=== PATIENT | female | born 1995 ===

== ENCOUNTER 2017-05-20 20:39 | Emergency (ER) | payer MEDICAID ==
[2017-05-20 20:53] VITALS: RESP 18
[2017-05-20 21:29] LABS: HCG,QUALITATIVE URINE POSITIVE (NEGATIVE)
[2017-05-20] MEDS ORDERED: Sodium Chloride 0.9% 1,000 ML IV ONE (21:32)
--- NOTE | 2017-05-20 21:32 | C.PDOC ---
History Of Present Illness The patient presents to the ED for evaluation of abdominal pain which began earlier today. Patient reports a burning sensation in her stomach as well as nausea and decreased PO intake. Patient is . She denies fever, chills, and vomiting at this time. Time Seen by Provider: 05/20/17 21:32 Chief Complaint (Nursing): Chest Pain History Per: Patient History/Exam Limitations: no limitations Onset/Duration Of Symptoms: Hrs Current Symptoms Are (Timing): Still Present Severity: Mild Pain Scale Rating Of: 2 Quality: Burning, "Pain" Associated Symptoms: Nausea Modifying Factors: None Exacerbating Factors: None Alleviating Factors: None Recent travel outside of the [place]: No Additional History Per: Patient Past Medical History Reviewed: Historical Data, Nursing Documentation, Vital Signs Vital Signs: Last Vital Signs Temp 98.0 F 05/20/17 20:50 Pulse 100 H 05/20/17 20:50 Resp 18 05/20/17 20:50 BP 131/82 05/20/17 20:50 Pulse Ox 100 05/20/17 22:19 - Medical History PMH: No Chronic Diseases Surgical History: No Surg Hx - [facility] Procedures APPLICATION OF SPLINT (04/11/14) Family History: States: No Known Family Hx - Social History Hx Tobacco Use: No Hx Alcohol Use: No Hx Substance Use: No - Immunization History Hx Influenza Vaccination: No Hx Pneumococcal Vaccination: No Review Of Systems Constitutional: Negative for: Fever, Chills Cardiovascular: Negative for: Chest Pain, Palpitations Respiratory: Negative for: Cough, Shortness of Breath Gastrointestinal: Positive for: Nausea, Abdominal Pain. Negative for: Vomiting , Diarrhea, Constipation Genitourinary: Negative for: Dysuria, Frequency, Hematuria Skin: Negative for: Rash, Lesions, Jaundice, Bruising Neurological: Negative for: Weakness, Numbness Physical Exam - Physical Exam Appears: Non-toxic, No Acute Distress Skin: Warm, Dry Head: Normacephalic Eye(s): bilateral: Normal Inspection Oral Mucosa: Moist Neck: Supple Chest: Symmetrical, No Deformity, No Tenderness Cardiovascular: Rhythm Regular, No Murmur Respiratory: No Rales, No Rhonchi, No Wheezing Gastrointestinal/Abdominal: Soft, No Tenderness, No Guarding, No Rebound Extremity: Normal ROM, Capillary Refill (less than 2 seconds ) Extremity: Bilateral: Atraumatic Neurological/Psych: Oriented x3 Gait: Steady ED Course And Treatment - Laboratory Results Result Diagrams: 05/20/17 21:45 05/20/17 21:45 ECG: Interpreted By Me, Viewed By Me ECG Rhythm: Sinus Rhythm (90), Nonspecific Changes O2 Sat by Pulse Oximetry: 100 (on RA) Pulse Ox Interpretation: Normal Progress Note: Bloodwork, urinalysis, EKG and Pelvic/Transvaginal US ordered. IV Fluids administered. 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 I have reviewed the chart and agree that the record accurately reflects my personal performance of the history, physical exam, medical decision making, and the department course for this patient. I have also personally directed, reviewed, and agree with the discharge instructions and disposition.
[2017-05-20 21:34] LABS: SQUAMOUS EPITHIAL 5 /hpf (0-5); URINE BACTERIA OCC (<OCC); URINE BILIRUBIN NEGATIVE (NEGATIVE); URINE BLOOD NEGATIVE (NEGATIVE); URINE CLARITY Hazy (Clear); URINE COLOR Yellow (YELLOW); URINE GLUCOSE (UA) NORMAL (Normal); URINE LEUKOCYTE ESTERASE NEG Leu/uL (Negative); URINE PROTEIN NEGATIVE (NEGATIVE); URINE UROBILINOGEN NORMAL mg/dL (0.2-1.0)
[2017-05-20 21:48] LABS: BASO % 0.2 % (0.0-2.0); EOS # 0.1 K/uL (0.0-0.7); EOS % 0.4 % (0.0-4.0); HEMOGLOBIN 12.3 g/dL (11.0-16.0); LYMPH # 1.7 K/uL (1.0-4.3); LYMPH % 10.1 % (20.0-40.0); MEAN CORPUSCULAR HEMOGLOBIN 29.8 pg (27.0-31.0); MEAN PLATELET VOLUME 8.3 fL (7.2-11.7); NEUT # 14.1 K/uL (1.8-7.0); NEUT % 83.3 % (50.0-75.0); RBC 4.12 Mil/uL (3.80-5.20); RED CELL DISTRIBUTION WIDTH 13.6 % (11.5-14.5)
[2017-05-20 21:49] LABS: MEAN CELL VOLUME 90.1 fL (81.0-99.0)
[2017-05-20] MEDS ORDERED: Sodium Chloride 0.9% 1,000 ML ONE (21:52)
[2017-05-20 21:59] LABS: INR 1.1; PROTHROMBIN TIME 11.9 SECONDS (9.7-12.2)
[2017-05-20 22:01] LABS: ALB/GLOB RATIO 0.9 (1.0-2.1); ALT/SGPT 19 U/L (9-52); AST/SGOT 15 U/L (14-36); BLOOD UREA NITROGEN 6 mg/dL (7-17); GFR AFRICAN-AMERICAN > 60; GFR NON-AFRICAN AMERICAN > 60
--- NOTE | 2017-05-20 23:46 | US ---
EXAM: US First Trimester, Transabdominal CLINICAL HISTORY: 22 years old, female; Signs and symptoms; Lmp or gestational age (in weeks): 1-11-18; Other: Abd pain; ; Additional info: Abd pain 9 weeks preg TECHNIQUE: Real-time transabdominal obstetrical ultrasound of the maternal pelvis and a first trimester with image documentation. COMPARISON: No relevant prior studies available. FINDINGS: Gestation: Single live intrauterine gestation. heart rate of 167 beats per minute. Muse-rump length of 1.6 cm, correlating with gestational age of 8 weeks 0 days. Uterus/cervix: No subchorionic hemorrhage. No cervical dilatation or effacement. Ovaries: RIGHT ovary: Probable 1.8 x 1.7 x 2.0 cm corpus luteal cyst. LEFT ovary: Normal. No adnexal masses. Free fluid: No significant free fluid. IMPRESSION: 1. Single live intrauterine gestation. 2. Incidental/non-acute findings are described above. EXAM: US , Transvaginal CLINICAL HISTORY: 22 years old, female; Signs and symptoms; Lmp or gestational age (in weeks): 1-11-18; Other: Abd pain; ; Additional info: Abd pain 9 weeks preg TECHNIQUE: Real-time transvaginal obstetrical ultrasound of the maternal pelvis and a first trimester with image documentation. Transvaginal imaging was used for better evaluation of the fetus and adnexa. COMPARISON: No relevant prior studies available. FINDINGS: Gestation: Single live intrauterine gestation. heart rate of 167 beats per minute. Muse-rump length of 1.6 cm, correlating with gestational age of 8 weeks 0 days. Uterus/cervix: No subchorionic hemorrhage. No cervical dilatation or effacement. Ovaries: RIGHT ovary: Probable 1.8 x 1.7 x 2.0 cm corpus luteal cyst. LEFT ovary: Normal. No adnexal masses. Free fluid: No significant free fluid.
[2017-05-21 00:04] VITALS: BP 120/77; PULSE 88; TEMP 98.4; O2SAT 99
--- NOTE | 2017-05-21 16:19 | CARD ---
APPROVED REPORT EKG Measurement Heart [id number] <Conclusion> Normal sinus rhythm Normal ECG
== END 2017-05-21 00:06 | disposition home or self-care (01) ==
LOC: C.ER 20:39
DX: O26.891 Other specified pregnancy related conditions, first trimester (principal); R10.9 Unspecified abdominal pain; Z3A.09 9 weeks gestation of pregnancy
CPT/HCPCS: 76805; 76817; 80053; 81001; 84702; 84703; 85025; 85610; 85730; 86850; 86900; 93005; 96360; 99284; J7040

== ENCOUNTER 2017-05-23 15:13 | Emergency (ER) | payer MEDICAID ==
[2017-05-23 15:20] VITALS: O2SAT 100
[2017-05-23] MEDS ORDERED: Amoxicillin-Clav 875-125 mg Tab PO STA (15:54)
[2017-05-23] MEDS ORDERED: Amoxicillin-Clav 875-125 mg Tab PO ONE ×2 (16:03→16:07)
--- NOTE | 2017-05-23 16:29 | C.PDOC ---
Time Seen by Provider: 05/23/17 15:48 Chief Complaint (Nursing): ENT Problem History Per: Patient Onset/Duration Of Symptoms: Days (2) Current Symptoms Are (Timing): Still Present Location Of Pain: Throat Associated Symptoms: Sore Throat Severity: Moderate Additional History Per: Prior Records Past Medical History Reviewed: Historical Data, Nursing Documentation, Vital Signs Vital Signs: Last Vital Signs Temp 99 F 05/23/17 15:18 Pulse 87 05/23/17 15:18 Resp 20 05/23/17 15:18 BP 133/86 05/23/17 15:18 Pulse Ox 100 05/23/17 15:18 - Medical History PMH: No Chronic Diseases Other PMH: Pt is 9 weeks Surgical History: No Surg Hx - [facility] Procedures APPLICATION OF SPLINT (04/11/14) Family History: States: Unknown Family Hx - Social History Hx Tobacco Use: No Hx Alcohol Use: No Hx Substance Use: No - Immunization History Hx Influenza Vaccination: No Hx Pneumococcal Vaccination: No Review Of Systems Except As Marked, All Systems Reviewed And Found Negative. Constitutional: Positive for: Fever (?). Negative for: Weakness ENT: Positive for: Throat Pain, Throat Swelling. Negative for: Nose Congestion Cardiovascular: Negative for: Chest Pain Respiratory: Negative for: Cough, Shortness of Breath Gastrointestinal: Negative for: Vomiting, Abdominal Pain Genitourinary: Negative for: Dysuria, Vaginal Bleeding, Pelvic Pain Musculoskeletal: Negative for: Neck Pain, Back Pain Skin: Negative for: Rash Neurological: Negative for: Weakness, Numbness Physical Exam - Physical Exam Appears: Non-toxic, No Acute Distress Skin: Normal Color, Warm, Dry, No Rash Head: Atraumatic, Normacephalic Eye(s): bilateral: Normal Inspection, PERRL, EOMI Oral Mucosa: Moist Throat: Erythema, Exudate, No Mass Neck: Normal ROM, Supple Lymphatic: Adenopathy (Cervical) Cardiovascular: Rhythm Regular Respiratory: Normal Breath Sounds, No Accessory Muscle Use Gastrointestinal/Abdominal: Soft, No Tenderness Back: No CVA Tenderness Extremity: Normal ROM Neurological/Psych: Oriented x3, Normal Motor, Normal Sensation ED Course And Treatment O2 Sat by Pulse Oximetry: 100 Pulse Ox Interpretation: Normal Reassessment Condition: Improved Disposition Counseled Patient/Family Regarding: Diagnosis, Need For Followup, Rx Given - Disposition Referrals: Edmund Ha MD [Staff Provider] - Disposition: HOME/ ROUTINE Disposition Time: 16:30 Condition: IMPROVED Additional Instructions: Follow up with your doctor. Return to the ER if you develop high fever, trouble breathing or swallowing, worsening of symptoms or if you have any other concerns. Prescriptions: Amoxicillin/Clavulanate [Augmentin 875 MG-125 MG] 1 tab PO BID #20 tab Instructions: Sore Throat, Adult (DC) Forms: [employer] (Vietnamese) - Clinical Impression Clinical Impression: Acute bacterial tonsillitis
[2017-05-23 16:44] VITALS: BP 114/74; PULSE 88; RESP 18; TEMP 98.7
== END 2017-05-23 16:44 | disposition home or self-care (01) ==
LOC: C.ER 15:13
DX: J03.90 Acute tonsillitis, unspecified (principal)

== ENCOUNTER 2017-07-13 19:51 | Emergency (ER) | payer MEDICAID, OTHER ==
[2017-07-13 20:16] VITALS: BP 132/81; PULSE 105; TEMP 98.3; O2SAT 98
[2017-07-13 20:45] LABS: SQUAMOUS EPITHIAL 12 /hpf (0-5); URINE BACTERIA FEW (<OCC); URINE BILIRUBIN NEGATIVE (NEGATIVE); URINE BLOOD NEGATIVE (NEGATIVE); URINE CLARITY Hazy (Clear); URINE COLOR Yellow (YELLOW); URINE GLUCOSE (UA) NORMAL (Normal); URINE PROTEIN NEGATIVE (NEGATIVE); URINE UROBILINOGEN NORMAL mg/dL (0.2-1.0)
[2017-07-13 20:46] LABS: URINE LEUKOCYTE ESTERASE 2+ Leu/uL (Negative)
[2017-07-13 21:46] VITALS: RESP 20
--- NOTE | 2017-07-13 21:48 | C.PDOC ---
History Of Present Illness 22 y/o female 4 months presents to the ED for palpitations. Patient admits to being an avid coffee and caffeine beverage drinker. She denies any CP , SOB, calf tenderness, and syncope. PMD: Dr. Palacios Chief Complaint (Nursing): Palpitations History Per: Patient History/Exam Limitations: no limitations Onset/Duration Of Symptoms: Hrs Current Symptoms Are (Timing): Still Present Recent travel outside of the [place]: No Past Medical History Reviewed: Historical Data, Nursing Documentation, Vital Signs Vital Signs: Last Vital Signs Temp 98.3 F 07/13/17 20:12 Pulse 105 H 07/13/17 20:12 Resp 20 07/13/17 21:45 BP 132/81 07/13/17 20:12 Pulse Ox 98 07/13/17 22:26 - Medical History PMH: No Chronic Diseases Surgical History: No Surg Hx - [facility] Procedures APPLICATION OF SPLINT (04/11/14) Family History: States: Unknown Family Hx - Social History Hx Tobacco Use: No Hx Alcohol Use: No Hx Substance Use: No - Immunization History Hx Influenza Vaccination: No Hx Pneumococcal Vaccination: No Review Of Systems Except As Marked, All Systems Reviewed And Found Negative. Cardiovascular: Positive for: Palpitations. Negative for: Chest Pain Respiratory: Negative for: Shortness of Breath Musculoskeletal: Negative for: Other (calf tenderness) Neurological: Negative for: Other (syncope) Physical Exam - Physical Exam Appears: Well, No Acute Distress Skin: Normal Color, Warm, Dry Head: Normacephalic Eye(s): bilateral: Normal Inspection, PERRL, EOMI Nose: Normal Throat: Normal Neck: Normal Cardiovascular: Rhythm Regular, No Edema, Other (Heat S1 & S2 is normal, no systoles) Respiratory: Normal Breath Sounds, Other (clear to auscultation bilaterally) Gastrointestinal/Abdominal: Normal Exam, Soft, No Tenderness Back: Normal Inspection Pelvic: Other (gravid uterus gestation of 15 weeks) Extremity: Normal ROM, No Pedal Edema, No Calf Tenderness, No Swelling, No Other (no clubbing edema) Extremity: Bilateral: No Pedal Edema Pulses: Left Radial: Normal (2+ distole), Right Radial: Normal (2+ distole) Neurological/Psych: Oriented x3, Normal Motor, No Other (focal deficits) ED Course And Treatment ECG: Interpreted By Me, Viewed By Me ECG Rhythm: Sinus Rhythm (normal), ST/T Changes (none and negative for ectopy) Rate From EC O2 Sat by Pulse Oximetry: 98 (RA) Pulse Ox Interpretation: Normal Medical Decision Making Medical Decision Making: Time: 20:12 Impression: Palpitations likely related to caffeine consumption Initial Plan: * EKG Will advise patient to avoid caffeinated drinks and to follow up with PMD as needed. Scribe Attestation: Documented by Josue Pradhan acting as a scribe Theron Mccormick MD. Scribe Attestation: All medical record entries made by the Scribe were at my direction and personally dictated by me. I have reviewed the chart and agree that the record accurately reflects my personal performance of the history, physical exam, medical decision making, and the department course for this patient. I have also personally directed, reviewed, and agree with the discharge instructions and disposition. Disposition - Disposition Referrals: [facility] [Outside] Disposition: HOME/ ROUTINE Disposition Time: 08:47 Condition: GOOD Additional Instructions: avoid caffienated beverages Instructions: Palpitations Forms: [employer] (Danish) Print Language: ALGERIAN - Clinical Impression Clinical Impression: Palpitations
--- NOTE | 2017-07-14 12:17 | CARD ---
APPROVED REPORT EKG Measurement Heart [id number] <Conclusion> Normal sinus rhythm Normal ECG
== END 2017-07-13 21:45 | disposition home or self-care (01) ==
LOC: C.ER 19:51
DX: R00.2 Palpitations (principal); O26.891 Other specified pregnancy related conditions, first trimester; Z3A.16 16 weeks gestation of pregnancy

== ENCOUNTER 2018-07-13 20:34 | Emergency (ER) | payer OTHER ==
[2018-07-13 21:40] LABS: SQUAMOUS EPITHIAL 1 /hpf (0-5); URINE BILIRUBIN NEGATIVE (NEGATIVE); URINE BLOOD NEGATIVE (NEGATIVE); URINE CLARITY Clear (Clear); URINE COLOR Yellow (YELLOW); URINE GLUCOSE (UA) NORMAL (Normal); URINE LEUKOCYTE ESTERASE NEG Leu/uL (Negative); URINE PROTEIN NEGATIVE (NEGATIVE); URINE UROBILINOGEN NORMAL mg/dL (0.2-1.0)
[2018-07-13 21:42] LABS: HCG,QUALITATIVE URINE NEGATIVE (NEGATIVE)
--- NOTE | 2018-07-13 21:48 | C.PDOC ---
History Of Present Illness 23 year old female presents to the ED c/o right sided headache that worsens with positional change. Patient also c/o nasal congestion. Patient denies feverm chills, visual changes, neck pain, rash, weakness, numbness. Time Seen by Provider: 07/13/18 21:39 Chief Complaint (Nursing): Headache History Per: Patient History/Exam Limitations: None Onset/Duration Of Symptoms: Days Current Symptoms Are (Timing): Still Present Anticoagulant/Antiplatlet Use?: No Recent Aspirin Use: No Past Medical History Reviewed: Historical Data, Nursing Documentation, Vital Signs Vital Signs: Last Vital Signs Temp 99.1 F 07/13/18 20:53 Pulse 90 07/13/18 20:53 Resp 20 07/13/18 20:53 BP 133/85 07/13/18 20:53 Pulse Ox 100 07/13/18 20:53 Primary Care Provider: Non [facility] Provider, - Medical History PMH: No Chronic Diseases Surgical History: No Surg Hx - [facility] Procedures APPLICATION OF SPLINT (04/11/14) Family History: States: Unknown Family Hx - Social History Hx Tobacco Use: No Hx Alcohol Use: No Hx Substance Use: No - Immunization History Hx Influenza Vaccination: No Hx Pneumococcal Vaccination: No Review Of Systems Constitutional: Negative for: Fever, Chills Eyes: Negative for: Vision Change Cardiovascular: Negative for: Chest Pain, Palpitations Respiratory: Negative for: Shortness of Breath Gastrointestinal: Negative for: Nausea, Vomiting, Abdominal Pain Skin: Negative for: Rash Neurological: Positive for: Headache. Negative for: Weakness, Numbness, Dizziness Physical Exam - Physical Exam Appears: Non-toxic, No Acute Distress, Other (obese female) Skin: Normal Color, Warm, Dry Head: Atraumatic, Normacephalic Eye(s): bilateral: Normal Inspection, PERRL, EOMI Ear(s): Bilateral: Normal Nose: Other (nasal inflamation r> l, kissing turbinates) Oral Mucosa: Moist Neck: Normal ROM, Supple Chest: Symmetrical Cardiovascular: Rhythm Regular Respiratory: Normal Breath Sounds, No Rales, No Rhonchi, No Wheezing Gastrointestinal/Abdominal: Soft, No Tenderness, No Guarding, No Rebound Extremity: Normal ROM, No Tenderness, No Swelling Neurological/Psych: Oriented x3, Normal Speech, Normal Cognition Gait: Steady ED Course And Treatment - Laboratory Results Lab Results: Urine HCG, Qual Negative (NEGATIVE) 07/13/18 21:32 Urine HCG, Qual Negative (NEGATIVE) 07/13/18 21:32 Lab Interpretation: Normal (ua neg) Urine POC: Negative O2 Sat by Pulse Oximetry: 100 (ON RA) Pulse Ox Interpretation: Normal Medical Decision Making Medical Decision Making: R sinus headache Disposition Doctor Will See Patient In The: Office Counseled Patient/Family Regarding: Studies Performed, Diagnosis - Disposition Referrals: [facility] [Outside] [employer] [facility] [Outside] [facility] [Outside] [place] [facility] [Outside] Disposition: HOME/ ROUTINE Disposition Time: 21:47 Condition: GOOD Additional Instructions: Advil/Ibuprofeno 600 mg cada 6 horas peewee necessario Pseudafed 30 mg cada 6 horas peewee necessario Se seca las pasajes nasales Claritin 10 mg diario- baja inflammaci'n de las pasajes nasalde sdebido a las allergies e la temporada Flonase [place]- esteroidal 1 espray cada lado del nariz cada 12 horas has el [place] Sigue con la clinica Familar peewee necessario. Instructions: Sinus Headache (DC) Forms: [employer] (French) Print Language: ARABIC - Clinical Impression Clinical Impression: Headache - Scribe Statement The provider has reviewed the documentation as recorded by the Scribe Yaya Noriega All medical record entries made by the Scribe were at my direction and personally dictated by me. I have reviewed the chart and agree that the record accurately reflects my personal performance of the history, physical exam, medical decision making, and the department course for this patient. I have also personally directed, reviewed, and agree with the discharge instructions and disposition.
[2018-07-13 21:58] VITALS: BP 134/73; PULSE 79; RESP 18; TEMP 98.6
[2018-07-14 04:05] VITALS: O2SAT 100
== END 2018-07-13 21:58 | disposition home or self-care (01) ==
LOC: C.ER 20:34
DX: R51 Headache (principal)

== ENCOUNTER 2018-08-01 07:27 | Emergency (ER) | payer OTHER ==
[2018-08-01] MEDS ORDERED: Oxycodone/Acetaminophen 5/325 mg Tab PO STA (08:09)
--- NOTE | 2018-08-01 08:13 | C.PDOC ---
History Of Present Illness 23 year old female presents to the emergency department with complaints of right-sided dental pain which is radiating to her right ear and neck. Patient denies taking anything for the pain. She denies any other active physical complaints. Time Seen by Provider: 08/01/18 07:44 Chief Complaint (Nursing): Dental Pain History Per: Patient History/Exam Limitations: no limitations Onset/Duration Of Symptoms: Days (1) Current Symptoms Are (Timing): Still Present Quality: Positive for: Sharp, "Pain" Past Medical History Reviewed: Historical Data, Nursing Documentation, Vital Signs Vital Signs: Last Vital Signs Temp 99.2 F 08/01/18 07:36 Pulse 75 08/01/18 07:36 Resp 18 08/01/18 07:36 BP 138/83 08/01/18 07:36 Pulse Ox 100 08/01/18 07:36 Primary Care Provider: Edmund Ha - Medical History PMH: No Chronic Diseases Surgical History: No Surg Hx - [facility] Procedures APPLICATION OF SPLINT (04/11/14) Family History: States: No Known Family Hx - Social History Hx Tobacco Use: No Hx Alcohol Use: No Hx Substance Use: No - Immunization History Hx Influenza Vaccination: No Hx Pneumococcal Vaccination: No Review Of Systems Except As Marked, All Systems Reviewed And Found Negative. Constitutional: Negative for: Fever, Chills, Weakness ENT: Positive for: Other (right sided toothache) Cardiovascular: Negative for: Chest Pain Respiratory: Negative for: Cough, Shortness of Breath Gastrointestinal: Negative for: Nausea, Vomiting, Abdominal Pain, Diarrhea Physical Exam - Physical Exam Appears: Non-toxic, In Acute Distress (holding right side of face) Skin: Warm, Dry Head: Atraumatic, Normacephalic, No Swelling Eye(s): bilateral: Normal Inspection Nose: Normal Oral Mucosa: Moist Tongue: Normal Appearing, No Swelling Lips: Normal Appearing, No Swelling Teeth: Caries (to the first molar; right side) Gingiva: Normal Appearing, No Erythema, No Ulceration, No Swelling Neck: Normal, Supple Neurological/Psych: Oriented x3, Normal Speech, Normal Cognition ED Course And Treatment O2 Sat by Pulse Oximetry: 100 (RA) Pulse Ox Interpretation: Normal Progress Note: Patient given 1 dose of percocet and 1 dose of Penicillin, discharged home with recommendation to f/u with dentist. Disposition - Disposition Disposition: HOME/ ROUTINE Disposition Time: 08:10 Condition: STABLE Additional Instructions: Follow up with Dentist RENA. Return to ED if feel worse. Prescriptions: Ibuprofen [Motrin Tab] 600 mg PO Q8 #30 tab Penicillin VK [Penicillin VK Tab] 500 mg PO Q6 #28 tab traMADol [Ultram] 50 mg PO Q6 #20 tab Instructions: Dental Pain (DC) Forms: [employer] (Sammarinese) - Clinical Impression Clinical Impression: Dental caries - PA / EDGER TAILER / Resident Statement MD/DO has reviewed & agrees with the documentation as recorded. - Scribe Statement The provider has reviewed the documentation as recorded by the Scribe (Fan Smith) All medical record entries made by the Scribe were at my direction and personally dictated by me. I have reviewed the chart and agree that the record accurately reflects my personal performance of the history, physical exam, medical decision making, and the department course for this patient. I have also personally directed, reviewed, and agree with the discharge instructions and disposition.
[2018-08-01] MEDS ORDERED: Oxycodone/Acetaminophen 5/325 mg Tab ONE (08:36)
[2018-08-01 08:41] VITALS: BP 130/80; PULSE 76; RESP 20; TEMP 98.6
[2018-08-01 10:58] VITALS: O2SAT 100
== END 2018-08-01 08:41 | disposition home or self-care (01) ==
LOC: C.ER 07:27
DX: K02.9 Dental caries, unspecified (principal)